=== PATIENT | female | born 1990 | race Caucasian/White ===

== ENCOUNTER 2018-07-28 13:01 | Outpatient (CLI) | END 2018-07-28 14:19 | disposition home or self-care (01) ==

== ENCOUNTER 2018-07-31 03:56 | Outpatient (CLI) | END 2018-07-31 07:15 | disposition home or self-care (01) ==

== ENCOUNTER 2018-08-03 18:23 | Outpatient (CLI) | END 2018-08-03 21:26 | disposition home or self-care (01) ==

== ENCOUNTER 2018-08-05 10:44 | Inpatient (IN) | END 2018-08-08 15:25 | disposition home or self-care (01) | DRG 775 ==